=== PATIENT | male | born 1960 | race Caucasian/White ===

== ENCOUNTER 2020-10-02 15:53 | Emergency (ER) | payer OTHER ==
[~2020-10-02] VITALS: Ht 177.8 cm; Wt 136.1 kg
[2020-10-02 15:59] VITALS: BP 148/79; Ht 177.8 cm; Wt 136.1 kg
== END 2020-10-02 17:29 | disposition home or self-care (01) ==
LOC: ED 15:53
DX: F10.20 Alcohol dependence, uncomplicated (principal); E66.01 Morbid (severe) obesity due to excess calories; I10 Essential (primary) hypertension; Z98.890 Other specified postprocedural states; Z91.040 Latex allergy status; Z20.828 Contact with and (suspected) exposure to other viral communicable diseases
CPT/HCPCS: U0003